=== PATIENT | female | born 1950 | race Caucasian/White ===

== ENCOUNTER 2020-07-28 09:27 | Emergency (ER) | payer MEDICARE ==
[2020-07-28 10:16] LABS: #Basophils 0.1 thou/uL (0.0-0.2); #Lymphocytes 0.3 thou/uL (1.20-3.40); #Monocytes 0.6 thou/uL (0.11-0.59); #Neutrophils 11.7 thou/uL (1.40-6.50); %Basophils 0.5 % (0.0-1.0); %Eosinophils 0.3 % (0.0-10.0); %Lymphocytes 2.2 % (21.0-51.0); %Monocytes 4.4 % (0.0-10.0); %Neutrophils 92.6 % (42.0-75.0); Hemoglobin 16.7 g/dL (12.0-16.0); Mean Corpuscular HGB CONC 33.8 g/dL (32.0-36.0); Mean Corpuscular Hemoglobin 33.2 pg (27.0-31.0); Mean Corpuscular Volume 98.1 fL (78.0-98.0); Mean Platelet Volume 6.8 fL (7.4-10.4); Platelet Count 290 thou/uL (130-400); RBC Distribution Width 11.4 % (11.5-14.5); Red Blood Cell (RBC) Count 5.03 mill/uL (4.20-5.40); White Blood Cell (WBC) Count 12.7 thou/uL (4.8-10.8)
[2020-07-28 10:23] LABS: ALT (SGPT) 49 U/L (8-55); AST (SGOT) 31 U/L (5-34); Anion Gap 16 mmol/L (10-20); Bilirubin, Total 1.1 mg/dL (0.2-1.2); Calc. Creatinine Clearance 0 mL/min (70-130); Calcium 9.5 mg/dL (7.8-10.44); Carbon Dioxide 24 mmol/L (23-31); Potassium 5.1 mmol/L (3.5-5.1)
[2020-07-28] MEDS ORDERED: Sodium Chloride 0.9% 1,000 ML ONE (10:38)
[2020-07-28 10:40] LABS: Chloride 103 mmol/L (98-107); Sodium 138 mmol/L (136-145)
[2020-07-28 10:41] LABS: Alkaline Phosphatase 97 U/L (40-110); BUN (Urea Nitrogen) 25 mg/dL (9.8-20.1); Glucose 197 mg/dL (83-110)
[2020-07-28 11:15] LABS: Bilirubin Negative (Negative); Blood, Urine Trace (Negative); Glucose, Urine (Dipstick) 100 mg/dL (Negative); Ketone, Urine Trace mg/dL (Negative); Leukocyte Negative (Negative); Nitrite Negative (Negative); Protein, Urine (Dipstick) Negative (Neg-Trace); Urobilinogen 0.2 mg/dL (Less than 2); pH, Urine 5.5 (5.0-9.0)
[2020-07-28 11:22] LABS: Clarity Cloudy (Clear); Specific Gravity, Urine 1.027 (1.002-1.036)
[2020-07-28 11:24] LABS: RBC/HPF 0-3 HPF (0-3); WBC/HPF 0-3 HPF (0-3)
[2020-07-28 11:27] LABS: Bacteria/HPF Rare-Few HPF (None Seen)
== END 2020-07-28 12:07 | disposition home or self-care (01) ==
LOC: NAV ERS 09:27
DX: E86.0 Dehydration (principal); R11.2 Nausea with vomiting, unspecified; R19.7 Diarrhea, unspecified; Z79.899 Other long term (current) drug therapy
CPT/HCPCS: 80053; 81003; 81015; 85025; 99284; J7050